=== PATIENT | male | born 1995 | race Caucasian/White ===

== ENCOUNTER 2021-03-17 15:26 | Emergency (ER) | payer OTHER, SELFPAY ==
[2021-03-17 15:45] VITALS: BP 145/91; PULSE 126; RESP 20; TEMP 37.1; O2SAT 99; BMI 24.2
[2021-03-17 15:58] LABS: Add Manual Diff / Slide Review NO; Basophils Absolute Auto 0 /uL (0-100); Basophils Percent Auto 0.4 % (0-2); Eosinophils Absolute Auto 100 /uL (0-450); Eosinophils Percent Auto 0.7 % (2-4); Hematocrit 52.6 % (41-53); Hemoglobin 18.2 g/dL (13.5-17.5); Lymphocytes Absolute Auto 3200 /uL (1100-4500); Lymphocytes Percent Auto 42.3 % (25-40); Mean Corpuscular HGB Conc 34.7 % (30-36); Mean Corpuscular Hemoglobin 29.3 PG (26-34); Mean Corpuscular Volume 84.6 fL (80-100); Monocytes Absolute Auto 600 /uL (0-900); Monocytes Percent Auto 7.5 % (3-14); Neutrophils Absolute Auto 3700 /uL (1500-7000); Neutrophils Percent Auto 49.1 % (50-75); Platelet Count 250 X10^3/uL (150-400); Red Blood Cell Count 6.22 X10^6/uL (4.5-5.9); White Blood Cell Count 7.5 X10^3/uL (4.5-11.0)
--- NOTE | 2021-03-17 15:59 | ED.GENADULT ---
HPI - General Adult General Chief complaint: Dizziness Stated complaint: EXTREME DIZZINESS/ALMOST FAINTING/HEAD PAIN Time Seen by Provider: 03/17/21 15:40 Source: patient Mode of arrival: Family Vehicle Limitations: no limitations History of Present Illness HPI narrative: Patient is a 26-year-old male who is sent over from the walk-in clinic for evaluation of lightheadedness, presyncope and a headache. Patient stated that yesterday he started to have the symptoms. Initially seem to occur when he was changing positions but also occurred when he was just lying flat. No chest pain. No palpitations. He does have a headache over a bump on the back of his head. He states the bump is not new but the pain over the area is new. No sore throat. No sinus congestion. No shortness of breath. No abdominal pain. No nausea vomiting. He states that is not a room spinning sensation. No ringing in his ears. Went to the walk-in clinic. Had a COVID test performed. Was sent to the emergency department for further evaluation. Related Data Allergies Allergy/AdvReac Type Severity Reaction Status Date / Time No Known Drug Allergies Allergy Verified 03/17/21 16:07 Review of Systems Constitutional Constitutional: Denies fatigue, Denies fever(s) and Reports headache(s) Eyes Eyes: Reports as per HPI, Reports system reviewed and no additional complaints, except as documented, Denies blurry vision and Denies diplopia ENT Ears, Nose, Mouth, and Throat: Denies vertigo, Reports dizziness, Reports headache(s), Denies nasal discharge, Denies nasal obstruction and Denies sore throat Cardiovascular Cardiovascular: Denies chest pain, Reports lightheadedness and Denies dyspnea Respiratory Respiratory: Denies cough and Denies dyspnea Gastrointestinal Gastrointestinal: Denies abdominal pain, Denies nausea and Denies vomiting Genitourinary Genitourinary: Reports system reviewed and no additional complaints, except as documented Musculoskeletal Musculoskeletal: Reports system reviewed and no additional complaints, except as documented Integumentary/Breasts Skin/Breast: Reports system reviewed and no additional complaints, except as documented Neurologic Neurologic: Denies vertigo, Reports dizziness and Reports headache(s) Endocrine Endocrine: Denies fatigue Hematologic/Lymphatic On Anticoagulants: No Patient History Medical History Healthy adult Social History Smoking Status: Never smoker Smoking Status: Never smoker alcohol intake frequency: 0-2 drinks per day Substance Use Type: does not use Exam Initial Vital Signs Initial Vital Signs: Vital Signs Temperature 98.7 F 03/17/21 15:45 Pulse Rate 126 H 03/17/21 15:45 Respiratory Rate 20 03/17/21 15:45 Blood Pressure 145/91 H 03/17/21 15:45 Pulse Oximetry 99 03/17/21 15:45 Const General: cooperative, healthy appearing and comfortable HENMT Head: normal to inspection and other (Tenderness to palpation over the occipital ridge right posterior scalp) Ears: other (Bilateral TMs obscured by cerumen) Nose: external nose normal Face and sinus: normal facial exam Eyes General: appearance normal, both eyes and all related structures Resp Effort & Inspection: normal respiratory effort Auscultation: clear to auscultation bilaterally Cardio Rate: tachycardic Rhythm: regular rhythm GI Inspection: normal to inspection Palpation: soft Skin General: no rashes or lesions noted Neuro General: patient alert, patient awake, patient oriented x3 and moves all extremities Cognition: normal cognition Speech: speech normal Gait: normal gait Extrem General: normal to inspection and capillary refill normal Psych Appearance: grossly normal and well kempt Course Orders Ordered: ED Orders 03/17/21 15:50 Complete Blood Count AUTO DIFF Stat Comprehensive Metabolic Panel Stat Lipase Stat Magnesium Stat Troponin & CK Cardiac Panel Stat 03/17/21 15:52 EKG-12 Lead Stat Discontinued Medications Sodium Chloride (Normal Saline 0.9%) 1,000 mls @ 1,000 mls/hr IV BOLUS ONE Stop: 03/17/21 16:51 Last Infusion: 03/17/21 17:48 Dose: 0 mls/hr Documented by: Admin: 03/17/21 16:06 Dose: 1,000 mls/hr Documented by: GIOVANNI Vital Signs Vital signs: Vital Signs - 8 hr 03/17/21 15:45 03/17/21 17:10 Temperature 98.7 F Pulse Rate 126 H 86 Respiratory Rate 20 16 Blood Pressure 145/91 H 143/88 H Pulse Oximetry 99 97 Medical Decision Making Lab Data Lab results reviewed: Yes I reviewed the patient's lab results. Result diagrams: 03/17/21 15:50 03/17/21 15:50 Labs: Lab Results 03/17/21 03/17/21 Range/Units 15:50 15:50 WBC 7.5 (4.5-11.0) X10^3/uL RBC 6.22 H (4.5-5.9) X10^6/uL Hgb 18.2 H (13.5-17.5) g/dL Hct 52.6 (41-53) % MCV 84.6 (80-100) fL MCH 29.3 (26-34) PG MCHC 34.7 (30-36) % RDW 13.0 (11.6-14.8) % Plt Count 250 (150-400) X10^3/uL Neut % (Auto) 49.1 L (50-75) % Lymph % (Auto) 42.3 H (25-40) % [place] % (Auto) 7.5 (3-14) % Eos % (Auto) 0.7 L (2-4) % Baso % (Auto) 0.4 (0-2) % Neut # (Auto) 3700 (2594-3880) /uL Lymph # (Auto) 3200 (2955-1745) /uL [place] # (Auto) 600 (0-900) /uL Eos # (Auto) 100 (0-450) /uL Baso # (Auto) 0 (0-100) /uL Sodium 142 (137-145) mmol/L Potassium 3.8 (3.4-5.1) mmol/L Chloride 104 (98-107) mmol/L Carbon Dioxide 29 (22-32) mmol/L BUN 11 (9-20) mg/dL Creatinine 1.01 (0.66-1.25) mg/dL Estimated GFR > 60.0 (>60) mL/min BUN/Creatinine Ratio 10.9 (6-22) Glucose 122 H (70-100) mg/dL Calcium 9.9 (8.4-10.2) mg/dL Magnesium 2.1 (1.6-2.3) mg/dL Total Bilirubin 0.9 (0.2-1.3) mg/dL AST 28 (17-59) IU/L ALT 29 (<50) IU/L Alkaline Phosphatase 72 (38-126) U/L Total Creatine Kinase 77 (55-170) U/L CK-MB (CK-2) TNP CK-MB (CK-2) Rel Index TNP Troponin I < 0.012 (0.01-0.034) ng/mL Total Protein 8.4 H (6.3-8.2) g/dL Albumin 5.1 H (3.5-5.0) g/dL Globulin 3.3 (1.7-4.1) g/dL Albumin/Globulin Ratio 1.5 (1.0-2.8) Lipase 305 H (23-300) U/L Urine Dip Bedside Urine Glucose Negative Bedside Urine Bilirubin - Negative Bedside Urine Ketone - Negative Urine Specific [place] 1.015 Bedside Urine Occult Blood - Negative Bedside Urine pH 7.0 Bedside Urine Protein - Negative Bedside Urine Urobilinogen - Negative Bedside Urine Nitrite - Negative Bedside Urine Leukocytes - Negative Esterase Point of care testing: Urine Dip Bedside Urine Glucose Negative Bedside Urine Bilirubin - Negative Bedside Urine Ketone - Negative Urine Specific [place] 1.015 Bedside Urine Occult Blood - Negative Bedside Urine pH 7.0 Bedside Urine Protein - Negative Bedside Urine Urobilinogen - Negative Bedside Urine Nitrite - Negative Bedside Urine Leukocytes - Negative Esterase ECG Data Attestation: I personally reviewed and interpreted this ECG as follows: Interpretation: Sinus a rhythm Ventricular rate 98 Sinus arrhythmia Normal axis Normal QRS Normal QTC No ST T wave changes MDM Narrative Medical decision making narrative: Patient's labs are unremarkable. Low suspicion for ACS. Low suspicion for CVA. Low suspicion for seizure. Low suspicion for TIA. COVID test was negative. Heart rate improved. No signs of arrhythmia. Afebrile. I feel that we should hold on any radiologic studies for now as I have such a low suspicion of any acute intracranial issues. He was given return precautions and follow-up instructions. He expressed understanding and agreement. Discharge Plan Departure Patient Disposition: Home Clinical Impression: Lightheadedness Instructions: DI for Dizziness-Nonvertigo Activity Restrictions/Additional Instructions: Your labs and EKG and workup here in the emergency department is very reassuring. I recommend that you consider taking an antihistamine such as Claritin or Zyrtec. You can purchase this [id number]. Think it as directed. Should increase your fluid intake. Contact your primary doctor for a follow-up. Return to the emergency department for any new or worsening symptoms Referrals: Lorrie Cote MD [Primary Care Provider] -
[2021-03-17] MEDS: SODIUM CHLORIDE 0.9% 1,000 ML 1000 ML IV (16:06)
[2021-03-17 16:13] LABS: Alanine Aminotransferase 29 IU/L (<50); Albumin 5.1 g/dL (3.5-5.0); Albumin Globulin Ratio 1.5 (1.0-2.8); Alkaline Phosphatase 72 U/L (38-126); Aspartate Aminotransferase 28 IU/L (17-59); BUN Creatinine Ratio 10.9 (6-22); Bilirubin Total 0.9 mg/dL (0.2-1.3); Blood Urea Nitrogen 11 mg/dL (9-20); Calcium 9.9 mg/dL (8.4-10.2); Carbon Dioxide 29 mmol/L (22-32); Chloride 104 mmol/L (98-107); Creatine Kinase 77 U/L (55-170); Estimated Glomerular Filt Rate > 60.0 mL/min (>60); Globulin 3.3 g/dL (1.7-4.1); Glucose 122 mg/dL (70-100); HEMOLYSIS 31 (0-50); Lipase 305 U/L (23-300); Magnesium 2.1 mg/dL (1.6-2.3); Potassium 3.8 mmol/L (3.4-5.1); Sodium 142 mmol/L (137-145); Total Protein 8.4 g/dL (6.3-8.2)
[2021-03-17 16:24] LABS: Troponin I < 0.012 ng/mL (0.01-0.034)
[2021-03-17 17:10] VITALS: BP 143/88; PULSE 86; RESP 16; O2SAT 97
--- NOTE | 2021-03-17 18:12 | PC.NURSE ---
Declined DC VS. Resps e/u, NAD.
== END 2021-03-17 18:13 | disposition home or self-care (01) ==
PROVIDERS: Emergency Provider Emergency Medicine; PCP Pediatrics
DX: R42 Dizziness and giddiness (principal); R51.9 Headache, unspecified; R07.9 Chest pain, unspecified
CPT/HCPCS: 36415; 80053; 81003; 82550; 83690; 83735; 84484; 85025; 87635; 93005; 96360; 96361; 99284

== ENCOUNTER → 2021-05-22 11:51 | Outpatient (CLI) | payer OTHER, SELFPAY ==
[2021-05-22 12:16] LABS: COVID19 -Nasal RAPID Negative (Negative)
== END ==
PROVIDERS: PCP Pediatrics; Referring Provider Physician Assistant; Visit Provider Physician Assistant
DX: R05.9 Cough, unspecified (principal); R43.0 Anosmia
CPT/HCPCS: 87635

== ENCOUNTER → 2021-05-23 14:23 | Outpatient (CLI) | payer OTHER, SELFPAY | PROVIDERS: PCP Pediatrics; Referring Provider Ophthalmology; Visit Provider Ophthalmology | DX: H10.33 Unspecified acute conjunctivitis, bilateral (principal) | CPT/HCPCS: 87070; 87077; 87185; 87205; 87252 ==

== ENCOUNTER 2024-07-12 12:36 | Emergency (ER) | payer SELFPAY ==
[2024-07-12 12:40] VITALS: BP 152/96; PULSE 105; RESP 18; TEMP 36.2; O2SAT 100; BMI 21.2
[2024-07-12 15:58] VITALS: BP 155/99
[2024-07-12 15:59] VITALS: PULSE 101; O2SAT 99
[2024-07-12 16:00] VITALS: BP 147/91; PULSE 101; O2SAT 99
[2024-07-12 16:30] VITALS: BP 156/78; PULSE 99; O2SAT 98
--- NOTE | 2024-07-12 16:42 | DI.CT.S_ITS ---
PROCEDURE: CT SOFT TISSUE NECK W CON INDICATIONS: Left-sided neck pain/hoarse voice TECHNIQUE: After the administration of intravenous contrast, 3.0 mm axial sections acquired from the sella to the aortic arch. Additional oblique axial 3.0 mm sections acquired through the pharynx. 3 mm thick coronal and sagittal reformats were generated. For radiation dose reduction, the following was used: automated exposure control. COMPARISON: None. FINDINGS: Image quality: Excellent. Lymph nodes: No enlarged lymph nodes seen throughout the neck. Vessels: Visualized vasculature appears patent. Neck spaces: The oropharynx, nasopharynx, and pharynx demonstrate no mucosal lesions. The vocal cords, false vocal cords, pyriform sinuses, epiglottis, vallecula, and tongue base all appear normal. Extramucosal spaces appear unremarkable. Glands: The parotid and submandibular glands appear normal. Thyroid gland is within normal limits. No suspicious thyroid nodule that require sonographic follow-up. Miscellaneous: Visualized brain and orbits appear normal. Lung apices appear clear. Superficial soft tissues appear normal. Bones: No suspicious bony lesions. Visualized sinuses and mastoids appear unremarkable. IMPRESSION: 1. No neck soft tissue mass or lymphadenopathy. 2. Airway is patent. Dictated by: Bernardino Levy M.D. on 07/12/2024 at 17:17 Approved by: Bernardino Levy M.D. on 07/12/2024 at 17:19
--- NOTE | 2024-07-12 16:43 | ED.NECK ---
HPI - Neck Pain/Injury General Chief Complaint: Recheck/Abnormal Lab/Rx Stated Complaint: vocal cord hemorraging Time Seen by Provider: 07/12/24 16:36 History of Present Illness HPI Narrative: Patient here with father. Complains of left-sided neck pain. 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 He developed laryngitis and then started having pain and swelling to left-sided neck. Symptoms ongoing since last Thursday. No prior history of throat surgery. Patient does have hoarse voice and is able to speak. No trouble breathing. No hemoptysis or hematemesis. Related Data Home Medications Medication Instructions Recorded Confirmed No Known Home Medications 05/22/21 05/22/21 Allergies Allergy/AdvReac Type Severity Reaction Status Date / Time No Known Drug Allergies Allergy Verified 05/22/21 11:45 Review of Systems Review of Systems Narrative: GENERAL: Negative chills, fatigue, malaise, fever, sweats. HEENT: Negative sinus pain, ear pain, positive sore throat RESPIRATORY: Negative dyspnea, cough CARDIOVASCULAR: Negative chest pain, palpitations GASTROINTESTINAL: Negative nausea, vomiting, abdominal pain : Negative dysuria, frequency, hematuria MUSCULOSKELETAL: Negative muscle or bony pain SKIN: Negative rash, skin lesions NEUROLOGIC: Negative weakness, numbness ROS Unobtainable: All systems reviewed & are unremarkable except as noted in HPI and below Patient History Medical History (Updated 07/12/24 @ 17:58 by Rusty Hammond MD) URI (upper respiratory infection) Healthy adult Social History Smoking Status: Never smoker Smoking Status: Never smoker alcohol intake frequency: 0-2 drinks per day Exam Narrative Exam Narrative: GENERAL: in no distress, not toxic not dyspneic, patient does have a hoarse voice, no hot potato voice HEAD: Normocephalic. EYES: Pupils equal round ENT: Mucous membranes moist., no pharyngeal erythema edema exudates no uvular shift no uvula swelling. No tongue elevation or drooling. No malocclusion or trismus NECK: Trachea midline. Mild bilateral submandibular tenderness left greater than right, no bulging mass CARDIOVASCULAR: Regular rate and rhythm RESPIRATORY: Clear to auscultation. Breath sounds equal bilaterally. No wheezes, rales, or rhonchi. GASTROINTESTINAL: Abdomen soft, non-tender EXTREMITIES: No gross deformities. BACK: No flank tenderness. NEURO: AOx4. SKIN: Warm and dry PSYCH: Not anxious, is cooperative Initial Vital Signs Initial Vital Signs: Vital Signs Temperature 97.2 F L 07/12/24 12:40 Pulse Rate 105 H 07/12/24 12:40 Respiratory Rate 18 07/12/24 12:40 Blood Pressure 152/96 H 07/12/24 12:40 Pulse Oximetry 100 07/12/24 12:40 Oxygen Delivery Method Room Air 07/12/24 12:40 Course Orders Ordered: Discontinued Medications Sodium Chloride (Normal Saline 0.9%) 1,000 mls @ 1,000 mls/hr IV BOLUS ONE Stop: 07/12/24 17:41 Last Infusion: 07/12/24 18:10 Dose: Infused Documented By: Admin: 07/12/24 17:05 Dose: 1,000 mls/hr Documented By: MARGRET Vital Signs Vital signs: Vital Signs - 8 hr 07/12/24 12:40 07/12/24 15:58 07/12/24 15:59 Temperature 97.2 F L Pulse Rate 105 H 101 H Respiratory Rate 18 Blood Pressure 152/96 H 155/99 H Pulse Oximetry 100 99 Oxygen Delivery Method Room Air 07/12/24 16:00 07/12/24 16:00 07/12/24 16:30 Temperature Pulse Rate 101 H Respiratory Rate Blood Pressure 147/91 H 156/78 H Pulse Oximetry 99 Oxygen Delivery Method 07/12/24 16:30 Temperature Pulse Rate 99 H Respiratory Rate Blood Pressure Pulse Oximetry 98 Oxygen Delivery Method Room Air MDM - Neck Pain/Injury Lab Data 07/12/24 16:55 07/12/24 16:55 Labs: Lab Results 07/12/24 Range/Units 16:55 WBC 8.6 (4.5-11.0) X10^3/uL RBC 5.80 (4.5-5.9) X10^6/uL Hgb 17.1 (13.5-17.5) g/dL Hct 49.7 (41-53) % MCV 85.6 (80-100) fL MCH 29.5 (26-34) PG MCHC 34.4 (30-36) % RDW 12.3 (11.6-14.8) % Plt Count 276 (150-400) X10^3/uL Neut % (Auto) 60.5 (50-75) % Lymph % (Auto) 34.1 (25-40) % [place] % (Auto) 4.9 (3-14) % Eos % (Auto) 0.1 L (2-4) % Baso % (Auto) 0.4 (0-2) % Neut # (Auto) 5200 (6178-0165) /uL Lymph # (Auto) 2900 (0426-8283) /uL [place] # (Auto) 400 (0-900) /uL Eos # (Auto) 0 (0-450) /uL Baso # (Auto) 0 (0-100) /uL Sodium 140 (137-145) mmol/L Potassium 3.7 (3.4-5.1) mmol/L Chloride 105 (98-107) mmol/L Carbon Dioxide 23 (22-32) mmol/L BUN 11 (9-20) mg/dL Creatinine 0.92 (0.66-1.25) mg/dL Estimated GFR > 60 (>60) mL/min BUN/Creatinine Ratio 12.0 (6-22) Glucose 96 (70-100) mg/dL Calcium 9.5 (8.4-10.2) mg/dL [facility] Narrative Medical decision making narrative: Patient here with father. Complains of left-sided neck pain. 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 He developed laryngitis and then started having pain and swelling to left-sided neck. Symptoms ongoing since last Thursday. No prior history of throat surgery. Patient does have hoarse voice and is able to speak. No trouble breathing. No hemoptysis or hematemesis. After history and exam CBC BMP normal saline CT soft tissue neck, ENT referral [facility] Medical records reviewed: No recent visit for this complaint Differential considered: Includes but not limited to laryngitis pharyngitis epiglottitis retropharyngeal abscess Lab Test results independently reviewed as above. Pertinent findings: WBC 8.6 hemoglobin 17.1 Imaging studies independently reviewed: CT soft tissue neck no acute finding Consultations: ENT referral provided Treatments: Normal saline Re-evaluations: 5:59 p.m.. Updated patient and father results. They are reassuring. CT imaging is reassuring. Return precautions reviewed. ENT referral provided. He desires discharge home Discussion: Appropriate for discharge home exam is reassuring. Return precautions reviewed with patient and father. No prescriptions are indicated at this time. ENT referral provided. He desires discharge home Diagnosis: Laryngitis Discharge Plan Departure Patient Disposition: Home Clinical Impression: Laryngitis, acute Instructions: DI for Laryngitis Activity Restrictions/Additional Instructions: Your blood work and imaging studies are reassuring. You do have laryngitis and no prescriptions at this time are indicated. Please do try to rest her voice. Please call provided ENT office tomorrow for follow up within a week. Return if worse if or if any questions or concerns Prescriptions: No Action No Known Home Medications Referrals: Padilla Burnham MD [Physician] - Miscellaneous,MD Le [Primary Care Provider] - Stand Alone Forms: Patient Portal/API/Survey
[2024-07-12 17:02] LABS: Add Manual Diff / Slide Review NO; Basophils Absolute Auto 0 /uL (0-100); Basophils Percent Auto 0.4 % (0-2); Eosinophils Absolute Auto 0 /uL (0-450); Eosinophils Percent Auto 0.1 % (2-4); Hematocrit 49.7 % (41-53); Hemoglobin 17.1 g/dL (13.5-17.5); Lymphocytes Absolute Auto 2900 /uL (1100-4500); Lymphocytes Percent Auto 34.1 % (25-40); Mean Corpuscular HGB Conc 34.4 % (30-36); Mean Corpuscular Hemoglobin 29.5 PG (26-34); Mean Corpuscular Volume 85.6 fL (80-100); Monocytes Absolute Auto 400 /uL (0-900); Monocytes Percent Auto 4.9 % (3-14); Neutrophils Absolute Auto 5200 /uL (1500-7000); Neutrophils Percent Auto 60.5 % (50-75); Platelet Count 276 X10^3/uL (150-400); Red Cell Distribution Width 12.3 % (11.6-14.8); White Blood Cell Count 8.6 X10^3/uL (4.5-11.0)
[2024-07-12] MEDS: SODIUM CHLORIDE 0.9% 1,000 ML 1000 ML IV (17:05)
[2024-07-12 17:16] LABS: Blood Urea Nitrogen 11 mg/dL (9-20); Calcium 9.5 mg/dL (8.4-10.2); Carbon Dioxide 23 mmol/L (22-32); Chloride 105 mmol/L (98-107); Estimated Glomerular Filt Rate > 60 mL/min (>60); Glucose 96 mg/dL (70-100); HEMOLYSIS 16 (0-50); Potassium 3.7 mmol/L (3.4-5.1); Sodium 140 mmol/L (137-145)
[2024-07-12 18:10] VITALS: BP 166/72; PULSE 89; RESP 20; TEMP 37; O2SAT 100
== END 2024-07-12 18:11 | disposition home or self-care (01) ==
PROVIDERS: Emergency Provider Emergency Medicine
DX: J04.0 Acute laryngitis (principal)
CPT/HCPCS: 36415; 70491; 80048; 85025; 96360; 99284; Q9967